=== PATIENT | female | born 1980 | race Caucasian/White ===

== ENCOUNTER 2024-03-20 09:06 | Emergency (ER) | payer MEDICAID, OTHER ==
[~2024-03-20] VITALS: Ht 162.6 cm; Wt 109.1 kg
[~2024-03-20 09:06] MED LIST: NOCURR
[2024-03-20 09:27] VITALS: TEMP 98.2
[2024-03-20] MEDS: LABETALOL HCL 5 MG/ML 20 ML VIAL IVP ONE (09:45)
[2024-03-20 10:23] LABS: BASOPHILS % (AUTO) 0.6 % (0.0-2.0); HEMOGLOBIN 14.7 g/dL (12.0-16.0); LYMPHOCYTES # (AUTO) 2.2 K/uL (1.0-4.8); MEAN CORPUSCULAR VOLUME 91 fL (80-100); NEUTROPHILS # (AUTO) 7.4 K/uL (1.8-7.7); WHITE BLOOD COUNT (AUTO) 10.9 K/uL (4.5-11.0)
[2024-03-20 10:28] LABS: EOSINOPHILS % (AUTO) 3.5 % (1.0-6.0); HEMATOCRIT 44.3 % (36-46); LYMPHOCYTES % (AUTO) 20.1 % (22.0-44.0); MEAN CORPUSCULAR HEMOGLOBIN 30.1 pg (26.0-34.0); MEAN CORPUSCULAR HGB CONC 33.1 G/dL (31.0-37.0); MONOCYTES # (AUTO) 0.9 K/uL (0.1-1.0); NEUTROPHILS % (AUTO) 67.8 % (40.0-70.0); PLATELET COUNT (AUTO) 295 K/uL (150-450); RED BLOOD CELL COUNT(AUTO) 4.87 MIL/uL (4.00-5.20); RED CELL DISTRIBUTION WIDTH 13.2 % (11.5-14.5)
[2024-03-20 10:30] LABS: ANION GAP 10 mmol/L (8-16); CARBON DIOXIDE 27 mmol/L (22-29); CHLORIDE 102 mmol/L (98-107); CREATININE 0.91 mg/dL (0.60-1.30); GLOMERULAR FILTR. RATE CALC > 60 mL/min (>60); GLUCOSE,RANDOM 109 mg/dL (70-110); POTASSIUM 3.5 mmol/L (3.5-5.1); SODIUM SERUM 139 mmol/L (136-145); UREA NITROGEN, BLOOD 14 mg/dL (7-18)
[2024-03-20 10:39] LABS: TROPONIN I-HIGH SENSITIVITY 23 ng/L (<51)
[2024-03-20 10:46] LABS: B-TYPE NATRIURETIC PEPTIDE 24 pg/mL (0-100)
[2024-03-20 11:04] LABS: COVID AG,FIA SOURCE NASAL SWAB
[2024-03-20] MEDS: ACETAMINOPHEN 500 MG TABLET PO ONE (11:15)
[2024-03-20] MEDS: AmLODIPine BESYLATE 10 MG TABLET PO ONE (11:15)
[2024-03-20] MEDS: GuaiFENesin/D-METHORPHAN [SUGAR-FREE] 200-20MG/10 ML SYRUP UDCUP PO ONE (11:15)
[2024-03-20] MEDS: KETOROLAC TROMETHAMINE 30 MG/ML VIAL IVP ONE (11:16)
[2024-03-20] MEDS: MethylPREDNISolone SOD SUCC 125 MG/2 ML VIAL IVP ONE (11:18)
[2024-03-20] MEDS ORDERED: 0.9% SODIUM CHLORIDE 5 ML NEB SOLUTION NEB ONE (11:25)
[2024-03-20 11:27] VITALS: PULSE 80; RESP 20; O2SAT 96
[2024-03-20] MEDS: IPRATROPIUM BROMIDE 0.5 MG/2.5 ML NEB SOLUTION NEB ONE (11:28)
[2024-03-20] MEDS: ALBUTEROL SULFATE 2.5 MG/0.5 ML NEB SOLUTION NEB ONE (11:28)
[2024-03-20 11:41] VITALS: PULSE 76; RESP 20; O2SAT 100
[2024-03-20 12:19] VITALS: BP 154/90; PULSE 83; RESP 17; O2SAT 99
[2024-03-20 12:30] LABS: INFLUENZA TYPE A NEGATIVE FOR TYPE A (NEGATIVE); INFLUENZA TYPE B NEGATIVE FOR TYPE B (NEGATIVE); SARS-COV2 (COVID) ANTIGEN,FIA Negative (Negative)
[2024-03-20] MEDS ORDERED: PRED-554 PO (13:23)
[2024-03-20] MEDS ORDERED: AMLO-258 PO (13:23)
[2024-03-20] MEDS ORDERED: ALBU18HF12 IH (13:23)
[2024-03-20] MEDS ORDERED: ACET-66 PO (13:23)
[2024-03-20] MEDS ORDERED: GUAIFDM PO (13:23)
== END 2024-03-20 14:01 | disposition home or self-care (01) ==
LOC: EMS 09:07
DX: I10 Essential (primary) hypertension (principal); J45.909 Unspecified asthma, uncomplicated; F17.210 Nicotine dependence, cigarettes, uncomplicated; Z98.890 Other specified postprocedural states; Z20.822 Contact with and (suspected) exposure to COVID-19
CPT/HCPCS: 99285; 96374; 96375; 71045; 87426; 80048; 83880; 84484; 84703; 85025; 87804; 36415; 94640; 93005; J1885; J3490; J2919; J7613

== ENCOUNTER 2024-09-30 15:37 | Emergency (ER) | payer OTHER ==
[~2024-09-30] VITALS: Ht 170.2 cm; Wt 136.4 kg
[~2024-09-30 15:37] MED LIST changes: +ACET-66 PO; +ALBU18HF12 IH; +AMLO-258 PO; +GUAIFDM PO; +PRED-554 PO
[2024-09-30 15:41] VITALS: TEMP 97
[2024-09-30] MEDS: KETOROLAC TROMETHAMINE 30 MG/ML VIAL IM ONE (19:22)
[2024-09-30] MEDS: AMOXICILLIN TRIHYDRATE 250 MG CAPSULE PO ONE (19:22)
[2024-09-30 19:25] VITALS: BP 71/78; PULSE 100; RESP 18; O2SAT 100
[2024-09-30] MEDS ORDERED: AMOX250C4 PO (19:49)
[2024-09-30] MEDS ORDERED: TRAM50TA5 PO (19:49)
== END 2024-09-30 20:03 | disposition home or self-care (01) ==
LOC: EMS 15:37
DX: K02.9 Dental caries, unspecified (principal); I10 Essential (primary) hypertension; J45.909 Unspecified asthma, uncomplicated; F17.210 Nicotine dependence, cigarettes, uncomplicated; Z79.52 Long term (current) use of systemic steroids; Z79.899 Other long term (current) drug therapy
CPT/HCPCS: 99283; 96372; J1885

== ENCOUNTER 2025-01-11 13:12 | Emergency (ER) | payer OTHER ==
[~2025-01-11] VITALS: Ht 165.1 cm; Wt 100.0 kg
[~2025-01-11 13:12] MED LIST changes: +AMOX250C4 PO; +TRAM50TA5 PO
[2025-01-11] MEDS ORDERED: LISI-893 PO (13:20)
[2025-01-11 13:26] VITALS: BP 129/84; PULSE 116; RESP 20; TEMP 98.8; O2SAT 99
[2025-01-11 13:49] LABS: PLATELET COUNT (AUTO) 336 K/uL (150-450); RED BLOOD CELL COUNT(AUTO) 4.63 MIL/uL (4.00-5.20); RED CELL DISTRIBUTION WIDTH 12.8 % (11.5-14.5); WHITE BLOOD COUNT (AUTO) 12.2 K/uL (4.5-11.0)
[2025-01-11 13:52] LABS: CALCIUM, TOTAL 8.3 mg/dL (8.8-10.5); CREATININE 0.68 mg/dL (0.60-1.30); GLOMERULAR FILTR. RATE CALC > 60 mL/min (>60); GLUCOSE,RANDOM 120 mg/dL (70-110); SODIUM SERUM 133 mmol/L (136-145); UREA NITROGEN, BLOOD 8 mg/dL (7-18)
[2025-01-11 14:01] LABS: TROPONIN I-HIGH SENSITIVITY 6 ng/L (<51)
== END 2025-01-11 15:31 | disposition home or self-care (01) ==
LOC: EMS 13:17
DX: R07.89 Other chest pain (principal); E87.6 Hypokalemia; I10 Essential (primary) hypertension; J45.909 Unspecified asthma, uncomplicated; F17.210 Nicotine dependence, cigarettes, uncomplicated; Z79.899 Other long term (current) drug therapy; Z87.59 Personal history of other complications of pregnancy, childbirth and the puerperium
CPT/HCPCS: 71045; 80048; 84484; 85025; 93005; 99284; 99285; 36415-L1; 36415-TC